=== PATIENT | female | born 1985 | race Asian ===

== ENCOUNTER 2021-10-02 20:08 | Emergency (ER) | payer OTHER ==
[~2021-10-02] VITALS: Ht 167.6 cm; Wt 69.4 kg
[2021-10-02 20:20] VITALS: BP_SYST 130
--- NOTE | 2021-10-02 20:30 | NUR ---
PT came from home with c/o fever of 99.3. Pt has no other concerns. A&O X4, ambulatory, and follows commands. Pt is 7 months . [id number]. Safety precautions in place.
--- NOTE | 2021-10-02 20:30 | NUR ---
Pt placed in TENT 1 for evaluation. at bedside.
--- NOTE | 2021-10-02 20:43 | NUR ---
Pt unable to provide urine sample at this time. Provided two cups of water and will try to obtain urine sample later.
--- NOTE | 2021-10-02 20:53 | NUR ---
Dr. Ravi with patient for evaluation.
[2021-10-02 21:34] VITALS: BP_SYST 130
--- NOTE | 2021-10-02 21:34 | NUR ---
Patient given written and verbal discharge instructions and verbalizes understanding. ER Dr. Ravi discussed with patient the results and treatment provided. Patient in stable condition. ID arm band removed. Patient educated on pain management and to follow up with PMD. Pain Scale 0. Opportunity for questions provided and answered. Medication side effect fact sheet provided.
== END 2021-10-02 21:34 | disposition home or self-care (01) ==
LOC: SED 20:08
DX: O99.513 Diseases of the respiratory system complicating pregnancy, third trimester (principal); J06.9 Acute upper respiratory infection, unspecified; B97.89 Other viral agents as the cause of diseases classified elsewhere; Z3A.20 20 weeks gestation of pregnancy; Z20.822 Contact with and (suspected) exposure to COVID-19
CPT/HCPCS: 36415; 99283